=== PATIENT | male | born 1960 | race Two or more races ===

== ENCOUNTER 2016-08-25 19:50 | Emergency (ER) | payer OTHER ==
[~2016-08-25] VITALS: Ht 175.3 cm; Wt 73.1 kg
[2016-08-25 23:00] LABS: HEMATOCRIT 38.9 % (38.0-50.0); MCH 23.3 PG (29.0-34.0); MCHC 34.2 G/DL (30.0-36.0); MEAN PLAT.VOLUME 11.2 uM^3 (9.0-12.4); PLATELET COUNT 233 K/uL (156-360); RBC DIS.WIDTH-CV 16.1 % (11.8-14.6); RBC DIS.WIDTH-SD 39.1 % (39-53); RED BLOOD COUNT 5.72 M/uL (4.00-5.50); WHITE BLOOD COUNT 13.2 K/uL (4.1-10.2)
[2016-08-25 23:03] LABS: EOSINOPHIL (%) 1.1 % (0-5); EOSINOPHIL COUNT 0.1 K/uL (0-0.3); IMMATURE GRANULOCYTE (%) 0.2 % (0.0-0.7); IMMATURE GRANULOCYTE COUNT 0.2 K/uL; LYMPHOCYTE COUNT 3.3 K/uL (1.0-2.8); MONOCYTE (%) 6.3 % (3-12); MONOCYTE COUNT 0.8 K/uL (0-0.8); NEUTROPHIL (%) 67.3 % (45-76); NEUTROPHIL COUNT 8.9 K/uL (1.8-6.4)
[2016-08-25 23:09] LABS: CHLORIDE 108 mEq/L (99-109)
[2016-08-25 23:10] LABS: SODIUM 138 mEq/L (136-147)
[2016-08-25 23:11] LABS: GLUCOSE 91 mg/dL (70-99)
[2016-08-25 23:13] LABS: ANION GAP 10 MEQ/L (2-14)
[2016-08-25 23:15] LABS: GFR ESTIMATE (CALCULATED) > 59 mL/min/
[2016-08-25 23:16] LABS: UREA NITROGEN (BUN) 18 mg/dL (9-23)
[2016-08-26] MEDS ORDERED: PROMETHAZINE HC25 M1 PO (00:39)
[2016-08-26] MEDS ORDERED: MOTRIN800 MG PO (00:39)
[2016-08-26] MEDS ORDERED: PEN-VEE K,VEET500 MG PO (00:39)
[2016-08-26 00:55] VITALS: BP 117/72
== END 2016-08-26 00:59 | disposition home or self-care (01) ==
LOC: EME 19:50
PROVIDERS: Emergency Medicine
DX: R51 Headache (principal); K04.7 Periapical abscess without sinus; F17.200 Nicotine dependence, unspecified, uncomplicated
CPT/HCPCS: 70450; 70486; 80048; 85025; 99281; 99284; J1885; J2550